=== PATIENT | female | born 1995 | race Caucasian/White ===

== ENCOUNTER 2016-10-21 18:33 | Inpatient (IN) | payer OTHER ==
[~2016-10-21] VITALS: Ht 157.5 cm; Wt 64.9 kg
[2016-10-21 19:45] VITALS: BP 131/87
--- NOTE | 2016-10-21 20:00 | NUR ---
PT TAKEN TO BED 5
--- NOTE | 2016-10-21 20:07 | NUR ---
Dr. Olivares evaluating patient at bedside.
[2016-10-21] MEDS ORDERED: KETOROLAC 30 MG/ML VIAL ONE (20:12)
--- NOTE | 2016-10-21 20:13 | NUR ---
PATIENT PRESENTS TO ED WITH LT FLANK PAIN FOR THE PAST 2 HOURS . PT STATES SHE CURRENTLY FEELS NAUSEOUS AND HAS A HX OF GASTRIC SLEEVE X1.5YRS AGO . DENIES V/D; SKIN IS PINK/WARM/DRY; AAOX4 WITH EVEN AND STEADY GAIT; LUNGS CLEAR BL; HR EVEN AND REGULAR; PT DENIES ANY FEVER, CP, SOB, OR COUGH AT THIS TIME; PATIENT STATES PAIN OF 10/10 AT THIS TIME; VSS; PATIENT POSITIONED FOR COMFORT; HOB ELEVATED; BEDRAILS UP X2; BED DOWN. ER MD MADE AWARE OF PT STATUS. FAMILY AT BEDSIDE
[2016-10-21] MEDS ORDERED: ONDANSETRON 4 MG/2 ML VIAL IVP ONE (20:15)
[2016-10-21] MEDS ORDERED: NACL 0.9% 1,000 ML IV ONE ×2 (20:15→22:10)
[2016-10-21] MEDS ORDERED: KETOROLAC 30 MG/ML VIAL IM ONE (20:45)
[2016-10-21] MEDS ORDERED: MORPHINE SULFATE 4 MG/ML SYR IVP ONE (21:45)
--- NOTE | 2016-10-21 22:45 | NUR ---
PT TAKEN TO CT
--- NOTE | 2016-10-21 23:03 | NUR ---
PT RETURN FROM CT
[2016-10-21] MEDS ORDERED: cefTRIAXone 1,000 MG VIAL ONE (23:54)
[2016-10-22] MEDS ORDERED: NACL 0.9% 1,000 ML IV ONE (01:10)
[2016-10-22] MEDS: NACL 0.9% 1,000 ML IV SCH ×4 (01:37→17:51)
[2016-10-22] MEDS ORDERED: HYDROcodone/APAP 5/325 MG 1 TAB TAB PO PRN (01:40)
[2016-10-22] MEDS ORDERED: ACETAMINOPHEN 325 MG TAB PO PRN (01:40)
[2016-10-22] MEDS ORDERED: MORPHINE SULFATE 2 MG/ML SYR IVP PRN (01:40)
[2016-10-22] MEDS ORDERED: ONDANSETRON 4 MG/2 ML VIAL IVP PRN (01:40)
--- NOTE | 2016-10-22 01:53 | NUR ---
Patient will be admitted to care of DR. Natividad GARCIA. Admited to Med/Surg. Will go to room 122B. Belongings list completed. Report to ASTRID LOPEZ.
[2016-10-22 02:00] VITALS: BP 107/65
--- NOTE | 2016-10-22 02:00 | NUR ---
ADMITTED 20 YEAR OLD FEMALE TO UNIT FROM ER. INITIAL ASSESSMENT COMPLETED. PT AAOX4. PT'S SKIN IS INTACT. PT DENIES ANY PAIN AT THIS TIME. VS ARE STABLE. PT HAS IV TO RIGHT AC G 20; ASYMPTOMATIC, PATENT AND INTACT. ORIENTED PT TO ROOM AND SURROUNDINGS AND USE OF CALL LIGHT. EXPLAINED PLAN OF CARE TO PT AN PT VERBALIZES UNDERSTANDING. SAFETY MEASURES IN PLACE, CALL LIGHT WITHIN REACH.
--- NOTE | 2016-10-22 02:07 | NUR ---
Pt report given to ASTRID LOPEZ. Transfer of care at this time.
--- NOTE | 2016-10-22 04:35 | NUR ---
PT SLEEPING AT THIS TIME. NO SIGNS OF DISTRESS NOTED, WILL CONTINUE TO MONITOR PT.
--- NOTE | 2016-10-22 06:05 | NUR ---
PT USING HER CELL PHONE, PT STABLE. WILL CONTINUE TO MONITOR PT.
--- NOTE | 2016-10-22 07:15 | NUR ---
ENDORSED PT IN STABLE CONDITION ARBEN KIM FOR CONTINUITY OF CARE.
--- NOTE | 2016-10-22 07:30 | NUR ---
RECEIVED PT RESTING COMFORTABLY IN BED. AAOX4, ABLE TO VERBALIZE NEEDS. NO COMPLAINTS OF PAIN, SOB, OR S/S ACUTE DISTRESS; MINIMAL LEFT FLANK TENDERNESS TO TOUCH; ROUTINE/PLAN OF CARE DISCUSSED AND REVIEWED, PT VERBALIZES UNDERSTANDING AND COMPLIANCE. IVF SL TO RIGHT AC, SITE ASYMPTOMATIC. SAFETY PRECAUTIONS OBSERVED AND MAINTAINED. CALL LIGHT WITHIN REACH. WILL CONTINUE TO MONITOR.
[2016-10-22 08:00] VITALS: BP 98/62
--- NOTE | 2016-10-22 08:20 | NUR ---
PATIENT HAS BEEN SCREENED AND CATEGORIZED MODERATE NUTRITION RISK. PATIENT WILL BE SEEN WITHIN 3-5 DAYS OF ADMISSION. 10/24/16-10/26/[address]
[2016-10-22] MEDS: ENOXAPARIN 40 MG/0.4 ML SYR SUBQ SCH (08:33)
--- NOTE | 2016-10-22 09:00 | NUR ---
PATIENT REFUSED ROUTINE LOVENOX SUBQ DESPITE EDUCATION OF RISKS AND BENEFITS. ENCOURAGED PT TO AMBULATE, PT VERBALIZES UNDERSTANDING AND COMPLIANCE. MOTHER AT BESIDE, DISCUSSED PT CONDITION AND PLAN OF CARE; ALL CURRENT QUESTIONS AND CONCERNS ADDRESSED.
--- NOTE | 2016-10-22 12:00 | NUR ---
CONDITION REMAINS STABLE. PT TOLERATING DIET WELL.
--- NOTE | 2016-10-22 14:00 | NUR ---
PT RESTING QUIETLY IN BED AT THIS TIME, NO S/S DISTRESS.
[2016-10-22 16:00] VITALS: BP 105/67
--- NOTE | 2016-10-22 16:00 | NUR ---
VSS. PT DENIES ANY PAIN OR DISTRESS AT THIS TIME.
--- NOTE | 2016-10-22 19:18 | NUR ---
CONDITION STABLE; ENDORSED PLAN OF CARE TO STATIONARY BOILER FIREMAN RN.
--- NOTE | 2016-10-22 19:19 | NUR ---
RECD. RESTING IN BED, AWAKE, A/OX4, PLEASANT AND FRIENDLY. RESPIRATION EVEN AND UNLABORED. AMBULATORY TO BR. IV OF NS AT 125 ML/HR INFUSING. PLAN OF CARE FOR THE SHIFT DISCUSSED. VERBALIZED UNDERSTANDING. ENCOURAGED TO DRINK MORE CRANBERRY JUICES AND WATER TO CLEANSE THE KIDNEYS. DENIES PAIN 0/10. MOTHER AT BEDSIDE.
--- NOTE | 2016-10-22 19:30 | NUR ---
Patient's Plan of Care was discussed and reviewed with SENIOR PROGRAM ANALYST: RADHA Oconnor
--- NOTE | 2016-10-22 19:35 | NUR ---
CRANBERRY JUICES AND ORANGE JUICE REQUESTED GIVEN.
[2016-10-22 20:00] VITALS: BP 104/63
--- NOTE | 2016-10-22 21:00 | NUR ---
MADE COMFORTABLY IN BED, ADDITIONAL PILLOW GIVEN. INSTRUCTED TO CALL NURSE IF NEEDING ANYTHING.
--- NOTE | 2016-10-22 23:00 | NUR ---
SLEEPING COMFORTABLY IN BED.
[2016-10-23] MEDS: NACL 0.9% 1,000 ML IV SCH ×2 (01:37→09:37)
--- NOTE | 2016-10-23 02:30 | NUR ---
AWAKE IN BED, SPEAKING WITH SOMEBODY IN HER CELLPHONE. IV INFILTRATED, CLAIMED SHE HAS PAIN IN THE IV SITE. IV TAKEN OUT. WILL INSERT ANOTHER.
--- NOTE | 2016-10-23 03:00 | NUR ---
COMPLAINED OF PAIN IN THE IV SITE, IV INFILTRATED, DISCONTINUED. WILL INSERT NEW IV LINE.
--- NOTE | 2016-10-23 03:30 | NUR ---
SLEEPING COMFORTABLY IN BED.
[2016-10-23 04:00] VITALS: BP 106/65
--- NOTE | 2016-10-23 05:10 | NUR ---
CHARGE NURSE BERLIN TRIES THRICE TO PUT NEW IV LINE BUT UNSUCCESSFUL, PATIENT HARD STICK. WILL ENDORSE TO AM NURSE.
--- NOTE | 2016-10-23 07:20 | NUR ---
STILL SLEEPING COMFORTABLY, NO COMPLAINT OF ABDOMINAL PAIN DURING SHIFT. ENDORSE TO ASTRID MARQUIS FOR CONTINUITY OF CARE.
--- NOTE | 2016-10-23 07:21 | NUR ---
RECEIVED PT FROM MICHAEL GARCIA ASLEEP BUT EASILY AWAKEN, AAOX4, SKIN INTACT, HAS BRUISES OF LEFT ARM DUE. NO S/S OF RESPIRATORY DISCOMFORT. NO IV ACCESS. PT IS AMBULATORY. DISCUSSED PLAN OF CARE, PT VERBALIZED UNDERSTANDING. CALL LIGHT WITHIN REACH, WILL CONTINUE TO MONITOR.
[2016-10-23 08:00] VITALS: BP 105/62
[2016-10-23] MEDS: ENOXAPARIN 40 MG/0.4 ML SYR SUBQ SCH (09:00)
--- NOTE | 2016-10-23 09:01 | NUR ---
PT REFUSED TO TAKE LOVENOX, STATED THAT SHE IS AMBULATORY. WILL NOTIFY DR. GARCIA
--- NOTE | 2016-10-23 10:45 | NUR ---
ATTEMPTED TO INSERT IV BUT UNSUCCESSFUL. WILL TRY AGAIN
--- NOTE | 2016-10-23 11:20 | NUR ---
FAXED INITIAL REVIEW TO [facility] [phone] PHONE JANUARY [phone] [place] [phone]
--- NOTE | 2016-10-23 12:15 | NUR ---
NOTIFIED DR. GARCIA OF LOW MAGNESIUM, WILL CARRY OUT NEW ORDERS.
[2016-10-23] MEDS ORDERED: MAGNESIUM OXIDE 400 MG TAB PO SCH (12:30)
--- NOTE | 2016-10-23 12:46 | NUR ---
NEW IV AT RIGHT ARM 22G INFUSING FLUIDS WELL.
--- NOTE | 2016-10-23 13:19 | NUR ---
DR GARCIA AT NURSES' STATION.
--- NOTE | 2016-10-23 14:30 | NUR ---
PT AWAKE SITTING ON BED WITH RELATIVES AT BEDSIDE. ALL NEEDS MET AT THIS TIME, WILL CONTINUE TO MONITOR.
--- NOTE | 2016-10-23 15:54 | NUR ---
DISCHARGE INSTRUCTION AND PRESCRIPTION GIVEN, PT VERBALIZED UNDERSTANDING. ID WRISTBAND AND IV ACCESS REMOVED, CATHETER TIP INTACT. VERIFICATION OF ADMISSION GIVEN TO PT PER REQUEST. NO S/S OF DISTRESS AT THIS TIME. PT STILL IN THE ROOM WITH RELATIVE GETTING READY TO LEAVE.
--- NOTE | 2016-10-23 15:57 | NUR ---
PT LEFT UNIT IN AMBULATING ACCOMPANIED BY RELATIVE IN STABLE CONDITION
== END 2016-10-23 15:57 | disposition home or self-care (01) | DRG 463 ==
LOC: MED 18:33 → MTU 10-22 01:42 → OBSVTOIN 10-22 14:38
PROVIDERS: ADMIT Hospitalist; ATTEND Hospitalist
DX: N39.0 Urinary tract infection, site not specified (principal); N20.0 Calculus of kidney; D72.829 Elevated white blood cell count, unspecified; Z98.84 Bariatric surgery status; Z87.442 Personal history of urinary calculi
CPT/HCPCS: 96361; 96365; 96372; 96375; 99285; G0378